=== PATIENT | female | born 1970 | race Caucasian/White ===

== ENCOUNTER 2017-09-01 08:10 | Inpatient (IN) | payer BC ==
[2017-08-28 10:54] LABS: Urine Bacteria NONE SEEN /hpf (None Seen); Urine Blood TRACE /uL (Negative); Urine Mucus FEW (None Seen); Urine WBC <1 /hpf (0 - 5)
[2017-08-28 10:56] LABS: Basophils # (auto) 0.1 uL; Basophils % (auto) 1.1 % (0.0-2.0); Eosinophils # (auto) 0.1 uL; Eosinophils % (auto) 1.8 % (0.0-7.0); Hematocrit 39.4 % (36.0-46.0); Hemoglobin 13.3 g/dL (12.2-16.2); Lymphocytes # (auto) 1.5 uL; Lymphocytes % (auto) 21.7 % (10.0-50.0); Mean Corpuscular Hemoglobin 31.8 pg (28.0-32.0); Mean Corpuscular Hgb Conc. 33.6 g/dL (32.0-36.0); Mean Corpuscular Volume 94.6 fL (80.0-100.0); Monocytes # (auto) 0.8 uL; Monocytes % (auto) 11.7 % (0.0-12.0); Neutrophils # (auto) 4.3 uL; Neutrophils % (auto) 63.7 % (37.0-80.0); Platelet Count (auto) 233 10^3/uL (140-450); Red Blood Cells 4.17 10^6/uL (4.0-5.20); Red Cell Distribution Width 12.4 % (11.8-14.3); White Blood Cell 6.8 10^3/uL (4.4-10.8)
[2017-08-28 11:12] LABS: INR 0.92 (0.9-1.15); Partial Thromboplastin Time 24.2 sec (22.64-33.71)
[2017-08-28 11:19] LABS: Albumin 3.7 g/dL (3.4-5.0); BUN/Creatinine Ratio 17.3; Bilirubin, Total 0.9 mg/dL (0.2-1.0); Calcium 8.5 mg/dL (8.5-10.1); Potassium 3.6 mmol/L (3.5-5.1); Total Protein 7.6 g/dL (6.4-8.2)
[~2017-09-01] VITALS: Ht 162.6 cm; Wt 89.1 kg
[~2017-09-01 08:10] MED LIST: MONT10TA23 PO
[2017-09-01] MEDS ORDERED: ceFAZolin 1GM/50ML 50 ML IV ONE (08:42)
[2017-09-01] MEDS ORDERED: PROPOFOL 10 MG/ML 20 ML IV ONE ×5 (09:14→12:40)
[2017-09-01] MEDS ORDERED: ROPIVACAINE 0.5% (5MG/ML) 20ML AMPULE IJ ONE (09:18)
[2017-09-01] MEDS ORDERED: LIDOCAINE W/ EPINEPHRINE 2% INJ 20ML VIAL ONE (09:18)
[2017-09-01] MEDS ORDERED: STERILE WATER 0 ML ONE (09:20)
[2017-09-01] MEDS ORDERED: ePHEDrine SULFATE 50 MG/ML AMP ONE (09:20)
[2017-09-01] MEDS ORDERED: PHENYLEPHRINE HCL 10 MG/ML VL ONE ×2 (09:29→12:23)
[2017-09-01] MEDS ORDERED: STERILE WATER 10 ML ONE ×2 (09:29→12:23)
[2017-09-01] MEDS ORDERED: MORPHINE SULF(PF) 0.5MG/ML 10ML VIAL ONE (10:28)
[2017-09-01] MEDS ORDERED: MIDAZOLAM HCL 1MG/1ML-2 ML VIAL ONE ×3 (10:28→10:47)
[2017-09-01] MEDS ORDERED: ePHEDrine SULFATE 50 MG/ML AMP IV PRN (11:45)
[2017-09-01] MEDS ORDERED: ONDANSETRON HCL 4 MG/2 ML VIAL IV ONE (11:45)
[2017-09-01] MEDS ORDERED: diphenhdrAMINE HCL 50 MG/1 ML VL IV PRN (11:45)
[2017-09-01] MEDS ORDERED: NALOXONE HCL 0.4 MG/ML VIAL IV PRN ×2 (11:45)
[2017-09-01] MEDS ORDERED: ONDANSETRON HCL 4 MG/2 ML VIAL IV PRN ×2 (11:45→13:45)
[2017-09-01] MEDS ORDERED: HYDROmorphone HCL 2 MG/ML VL IV PRN ×2 (11:45→13:45)
[2017-09-01] MEDS ORDERED: TEMAZEPAM 15 MG CAP PO PRN (13:45)
[2017-09-01] MEDS ORDERED: ACETAMINOPHEN 325 MG TAB PO PRN (13:45)
[2017-09-01 14:30] VITALS: BP 101/56
[2017-09-01] MEDS: LACTATED RINGER'S 1,000 ML IV SCH (15:09)
[2017-09-01] MEDS: SODIUM CHLOR 0.9% PF (SALINE LOCK) 10ML VIAL IV SCH ×2 (15:09→21:46)
[2017-09-01] MEDS: ceFAZolin 1GM/50ML 50 ML IV SCH ×2 (15:30→21:36)
[2017-09-01 17:52] VITALS: BP 101/56
[2017-09-01] MEDS: HYDROcodone-ACET 10/325MG TAB PO PRN ×2 (18:10→20:38)
[2017-09-01] MEDS: DOCUSATE SOD 100 MG CAP PO SCH (21:36)
[2017-09-01] MEDS: oxyCODONE ER 10 MG TAB PO SCH (21:37)
[2017-09-01 22:00] VITALS: BP 143/98
[2017-09-01] MEDS: KETOROLAC TROMETH 30 MG/ML 1ML VIAL IV PRN (22:45)
[2017-09-02] MEDS: traMADol HCL 50 MG TAB PO PRN ×2 (00:07→11:07)
[2017-09-02] MEDS: HYDROcodone-ACET 10/325MG TAB PO PRN ×3 (01:51→17:20)
[2017-09-02] MEDS: ceFAZolin 1GM/50ML 50 ML IV SCH (02:56)
[2017-09-02 05:00] VITALS: BP 143/74
[2017-09-02] MEDS: SODIUM CHLOR 0.9% PF (SALINE LOCK) 10ML VIAL IV SCH ×3 (06:04→21:31)
[2017-09-02] MEDS: KETOROLAC TROMETH 30 MG/ML 1ML VIAL IV PRN ×3 (06:45→19:51)
[2017-09-02 09:00] VITALS: BP 139/77
[2017-09-02] MEDS: DOCUSATE SOD 100 MG CAP PO SCH ×2 (09:37→21:31)
[2017-09-02] MEDS: LACTATED RINGER'S 1,000 ML IV SCH (09:37)
[2017-09-02] MEDS: oxyCODONE ER 10 MG TAB PO SCH ×2 (09:37→21:31)
[2017-09-02] MEDS: ENOXAPARIN SOD 40 MG/0.4 ML SYRINGE SC SCH (09:37)
[2017-09-02] MEDS ORDERED: ALBUTEROL SULF 2.5 MG/0.5ML(0.5%) NEB SOLN NEB PRN (11:15)
[2017-09-02 11:20] LABS: Hematocrit 33.8 % (36.0-46.0); Hemoglobin 11.5 g/dL (12.2-16.2)
[2017-09-02] MEDS ORDERED: HYDROmorphone HCL 2 MG/ML VL IV PRN (11:30)
[2017-09-02 11:44] VITALS: BP 139/77
[2017-09-02 13:00] VITALS: BP 142/77
[2017-09-02 17:30] VITALS: BP 127/79
[2017-09-02] MEDS: MONTELUKAST SODIUM 10 MG TAB PO SCH (21:30)
[2017-09-02 22:08] VITALS: BP 130/72
[2017-09-03] MEDS: KETOROLAC TROMETH 30 MG/ML 1ML VIAL IV PRN ×2 (04:20→11:08)
[2017-09-03 04:47] VITALS: BP 142/78
[2017-09-03] MEDS: SODIUM CHLOR 0.9% PF (SALINE LOCK) 10ML VIAL IV SCH ×4 (05:20→23:52)
[2017-09-03 07:18] LABS: Hematocrit 27.7 % (36.0-46.0); Hemoglobin 9.5 g/dL (12.2-16.2)
[2017-09-03 08:00] VITALS: BP 105/49
[2017-09-03] MEDS: HYDROcodone-ACET 10/325MG TAB PO PRN ×2 (08:36→15:47)
[2017-09-03 09:00] VITALS: BP 105/49
[2017-09-03] MEDS: DOCUSATE SOD 100 MG CAP PO SCH ×2 (10:25→22:11)
[2017-09-03] MEDS: oxyCODONE ER 10 MG TAB PO SCH ×2 (10:25→22:11)
[2017-09-03] MEDS: ENOXAPARIN SOD 40 MG/0.4 ML SYRINGE SC SCH (10:25)
[2017-09-03 13:00] VITALS: BP 118/58
[2017-09-03 16:58] VITALS: BP 105/58
[2017-09-03] MEDS: traMADol HCL 50 MG TAB PO PRN (20:09)
[2017-09-03 21:41] VITALS: BP 114/59
[2017-09-03] MEDS: MONTELUKAST SODIUM 10 MG TAB PO SCH (22:11)
[2017-09-04] MEDS: HYDROcodone-ACET 10/325MG TAB PO PRN ×3 (01:30→18:00)
[2017-09-04 05:18] VITALS: BP 108/59
[2017-09-04] MEDS: traMADol HCL 50 MG TAB PO PRN ×2 (06:52→15:58)
[2017-09-04] MEDS ORDERED: POTASSIUM CHLORIDE 40 MEQ, LIDOCAINE 1% (LOCAL ANESTH.) 4 ML in SODIUM CHL 0.9% 100 ML IV ONE (07:00)
[2017-09-04 07:32] VITALS: BP 123/62
[2017-09-04 09:41] LABS: Hematocrit 26.3 % (36.0-46.0)
[2017-09-04] MEDS: DOCUSATE SOD 100 MG CAP PO SCH ×2 (09:44→22:00)
[2017-09-04] MEDS: ENOXAPARIN SOD 40 MG/0.4 ML SYRINGE SC SCH (09:44)
[2017-09-04] MEDS: oxyCODONE ER 10 MG TAB PO SCH ×2 (09:45→22:13)
[2017-09-04] MEDS ORDERED: LACTULOSE 20Gm/30ML SOLN PO ONE (11:45)
[2017-09-04 11:46] VITALS: BP 122/64
[2017-09-04] MEDS: SODIUM CHLOR 0.9% PF (SALINE LOCK) 10ML VIAL IV SCH ×2 (14:00→22:15)
[2017-09-04 17:02] VITALS: BP 112/69
[2017-09-04] MEDS: MONTELUKAST SODIUM 10 MG TAB PO SCH (22:13)
[2017-09-04 22:18] VITALS: BP 105/60
[2017-09-05] MEDS: traMADol HCL 50 MG TAB PO PRN ×3 (00:54→20:10)
[2017-09-05] MEDS: HYDROcodone-ACET 10/325MG TAB PO PRN (03:10)
[2017-09-05 04:58] VITALS: BP 121/73
[2017-09-05] MEDS: SODIUM CHLOR 0.9% PF (SALINE LOCK) 10ML VIAL IV SCH ×3 (06:02→21:57)
[2017-09-05 07:03] LABS: Hematocrit 25.2 % (36.0-46.0); Hemoglobin 8.7 g/dL (12.2-16.2)
[2017-09-05 09:17] VITALS: BP 135/65
[2017-09-05] MEDS: oxyCODONE ER 10 MG TAB PO SCH ×2 (10:02→21:56)
[2017-09-05] MEDS: DOCUSATE SOD 100 MG CAP PO SCH ×2 (10:02→21:56)
[2017-09-05] MEDS: ENOXAPARIN SOD 40 MG/0.4 ML SYRINGE SC SCH (10:02)
[2017-09-05 10:12] VITALS: BP 135/65
[2017-09-05] MEDS ORDERED: MORPHINE SULFATE 4 MG/ML SYR/VIAL ONE (12:11)
[2017-09-05 12:30] VITALS: BP 112/58
[2017-09-05] MEDS: MORPHINE SULFATE 4 MG/ML SYR/VIAL IV PRN ×2 (17:08→23:56)
[2017-09-05 17:23] VITALS: BP 121/66
[2017-09-05] MEDS: MONTELUKAST SODIUM 10 MG TAB PO SCH (21:56)
[2017-09-05 22:27] VITALS: BP 136/76
[2017-09-06] MEDS: MORPHINE SULFATE 4 MG/ML SYR/VIAL IV PRN ×4 (05:09→23:14)
[2017-09-06 05:10] VITALS: BP 118/67
[2017-09-06] MEDS: traMADol HCL 50 MG TAB PO PRN ×2 (05:47→15:27)
[2017-09-06] MEDS: SODIUM CHLOR 0.9% PF (SALINE LOCK) 10ML VIAL IV SCH ×3 (05:48→21:50)
[2017-09-06 05:56] LABS: Hematocrit 27.1 % (36.0-46.0); Hemoglobin 9.3 g/dL (12.2-16.2); Mean Corpuscular Hemoglobin 32.2 pg (28.0-32.0); Mean Corpuscular Hgb Conc. 34.2 g/dL (32.0-36.0); Mean Corpuscular Volume 94.2 fL (80.0-100.0); Platelet Count (auto) 261 10^3/uL (140-450); Red Blood Cells 2.87 10^6/uL (4.0-5.20); Red Cell Distribution Width 12.2 % (11.8-14.3); White Blood Cell 8.7 10^3/uL (4.4-10.8)
[2017-09-06 06:02] LABS: Band Neutrophils % (manual) 0; Basophils % (manual) 0 (0.0-2.0); Blast Cells 0; Metamyelocytes % 0; Myelocytes % 0; Promyelocytes % 0; Reactive Lymphocytes 0
[2017-09-06 06:49] LABS: Eosinophils % (manual) 4 (0-7); Lymphocytes % (manual) 18 (10.0-50.0); Monocytes % (manual) 13 (0-12)
[2017-09-06] MEDS: HYDROcodone-ACET 10/325MG TAB PO PRN ×2 (07:27→20:00)
[2017-09-06 08:50] VITALS: BP 115/64
[2017-09-06] MEDS: DOCUSATE SOD 100 MG CAP PO SCH ×2 (09:32→21:50)
[2017-09-06] MEDS: ENOXAPARIN SOD 40 MG/0.4 ML SYRINGE SC SCH (09:32)
[2017-09-06] MEDS: oxyCODONE ER 10 MG TAB PO SCH ×2 (09:32→21:50)
[2017-09-06 11:54] VITALS: BP 111/66
[2017-09-06 16:24] VITALS: BP 144/81
[2017-09-06] MEDS: MONTELUKAST SODIUM 10 MG TAB PO SCH (21:50)
[2017-09-06 21:58] VITALS: BP 106/54
[2017-09-07] MEDS: traMADol HCL 50 MG TAB PO PRN ×2 (01:12→12:02)
[2017-09-07] MEDS: MORPHINE SULFATE 4 MG/ML SYR/VIAL IV PRN ×3 (03:08→19:42)
[2017-09-07 04:43] VITALS: BP 123/76
[2017-09-07] MEDS: HYDROcodone-ACET 10/325MG TAB PO PRN ×2 (05:09→15:18)
[2017-09-07] MEDS: SODIUM CHLOR 0.9% PF (SALINE LOCK) 10ML VIAL IV SCH ×3 (05:51→21:50)
[2017-09-07 05:53] LABS: Hemoglobin 9.1 g/dL (12.2-16.2); Mean Corpuscular Hemoglobin 32.5 pg (28.0-32.0); Mean Corpuscular Hgb Conc. 34.8 g/dL (32.0-36.0); Mean Corpuscular Volume 93.5 fL (80.0-100.0); Platelet Count (auto) 306 10^3/uL (140-450); Red Blood Cells 2.79 10^6/uL (4.0-5.20); Red Cell Distribution Width 12.4 % (11.8-14.3); White Blood Cell 8.4 10^3/uL (4.4-10.8)
[2017-09-07 05:58] LABS: Band Neutrophils % (manual) 0; Basophils % (manual) 0 (0.0-2.0); Blast Cells 0; Metamyelocytes % 0; Myelocytes % 0; Promyelocytes % 0; Reactive Lymphocytes 0
[2017-09-07 06:33] LABS: Eosinophils % (manual) 6 (0-7); Lymphocytes % (manual) 20 (10.0-50.0); Monocytes % (manual) 22 (0-12)
[2017-09-07 09:11] VITALS: BP 105/65
[2017-09-07] MEDS: DOCUSATE SOD 100 MG CAP PO SCH ×2 (10:06→21:51)
[2017-09-07] MEDS: ENOXAPARIN SOD 40 MG/0.4 ML SYRINGE SC SCH (10:06)
[2017-09-07] MEDS: oxyCODONE ER 10 MG TAB PO SCH ×2 (10:07→21:51)
[2017-09-07] MEDS ORDERED: DOCUSATE SOD 100 MG CAP PO ONE (11:00)
[2017-09-07] MEDS ORDERED: LACTULOSE 20Gm/30ML SOLN PO ONE (11:00)
[2017-09-07 13:17] VITALS: BP 103/57
[2017-09-07 16:48] VITALS: BP 113/74
[2017-09-07] MEDS: MONTELUKAST SODIUM 10 MG TAB PO SCH (21:51)
[2017-09-07 22:00] VITALS: BP 138/85
[2017-09-08] MEDS: HYDROcodone-ACET 10/325MG TAB PO PRN (00:25)
[2017-09-08] MEDS: MORPHINE SULFATE 4 MG/ML SYR/VIAL IV PRN ×3 (04:23→17:56)
[2017-09-08 05:00] VITALS: BP 121/70
[2017-09-08 05:34] VITALS: BP 137/68
[2017-09-08] MEDS: SODIUM CHLOR 0.9% PF (SALINE LOCK) 10ML VIAL IV SCH ×3 (05:36→22:12)
[2017-09-08 06:26] LABS: Hematocrit 26.5 % (36.0-46.0); Mean Corpuscular Hemoglobin 31.6 pg (28.0-32.0); Mean Corpuscular Hgb Conc. 33.8 g/dL (32.0-36.0); Mean Corpuscular Volume 93.5 fL (80.0-100.0); Platelet Count (auto) 392 10^3/uL (140-450); Red Blood Cells 2.83 10^6/uL (4.0-5.20); Red Cell Distribution Width 12.5 % (11.8-14.3); White Blood Cell 8.9 10^3/uL (4.4-10.8)
[2017-09-08 06:29] LABS: Band Neutrophils % (manual) 0; Basophils % (manual) 0 (0.0-2.0); Blast Cells 0; Metamyelocytes % 0; Myelocytes % 0; Promyelocytes % 0; Reactive Lymphocytes 0
[2017-09-08 08:00] VITALS: BP 143/67
[2017-09-08 10:00] VITALS: BP 143/67
[2017-09-08] MEDS: ENOXAPARIN SOD 40 MG/0.4 ML SYRINGE SC SCH (10:16)
[2017-09-08] MEDS: oxyCODONE ER 10 MG TAB PO SCH ×2 (10:16→22:13)
[2017-09-08] MEDS: DOCUSATE SOD 100 MG CAP PO SCH ×2 (10:17→22:12)
[2017-09-08] MEDS ORDERED: TEMAZEPAM 15 MG CAP PO PRN (11:15)
[2017-09-08 12:36] VITALS: BP 146/86
[2017-09-08 13:48] LABS: Eosinophils % (manual) 4 (0-7); Lymphocytes % (manual) 15 (10.0-50.0); Monocytes % (manual) 19 (0-12)
[2017-09-08 16:41] VITALS: BP 141/79
[2017-09-08] MEDS: MONTELUKAST SODIUM 10 MG TAB PO SCH (22:13)
[2017-09-09 05:00] VITALS: BP 135/72
[2017-09-09] MEDS: HYDROcodone-ACET 10/325MG TAB PO PRN ×3 (05:37→15:31)
[2017-09-09] MEDS: SODIUM CHLOR 0.9% PF (SALINE LOCK) 10ML VIAL IV SCH ×2 (06:12→13:35)
[2017-09-09 08:00] VITALS: BP 141/87
[2017-09-09] MEDS: ENOXAPARIN SOD 40 MG/0.4 ML SYRINGE SC SCH (08:59)
[2017-09-09] MEDS: oxyCODONE ER 10 MG TAB PO SCH (09:00)
[2017-09-09] MEDS: DOCUSATE SOD 100 MG CAP PO SCH (09:00)
[2017-09-09 09:07] VITALS: BP 141/87
[2017-09-09 10:57] VITALS: BP 141/87
[2017-09-09 12:47] VITALS: BP 127/80
[2017-11-08] MEDS ORDERED: ASP81EC PO (17:52)
[2017-11-08] MEDS ORDERED: PERCOT PO (17:52)
== END 2017-09-09 18:45 | disposition home or self-care (01) | DRG 470 ==
LOC: SUR 08:10 → EAST 08:11
PROVIDERS: ADMIT Orthopaedic Surgery; ATTEND Internal Medicine
PROC: 0QSF0ZZ Reposition Left Patella, Open Approach (ICD-10-PCS; 2017-09-01)
PROC: 0SRD0JA Replacement of Left Knee Joint with Synthetic Substitute, Uncemented, Open Approach (ICD-10-PCS; 2017-09-01)
PROC: 0KNR0ZZ Release Left Upper Leg Muscle, Open Approach (ICD-10-PCS; 2017-09-01)
PROC: 0MBP0ZZ Excision of Left Knee Bursa and Ligament, Open Approach (ICD-10-PCS; 2017-09-01)
PROC: 0JBP3ZZ Excision of Left Lower Leg Subcutaneous Tissue and Fascia, Percutaneous Approach (ICD-10-PCS; 2017-09-01)
PROC: 0SRD0J9 Replacement of Left Knee Joint with Synthetic Substitute, Cemented, Open Approach (ICD-10-PCS; principal; 2017-09-01 10:24)
DX: M17.12 Unilateral primary osteoarthritis, left knee (principal); J45.909 Unspecified asthma, uncomplicated; M21.169 Varus deformity, not elsewhere classified, unspecified knee; M21.162 Varus deformity, not elsewhere classified, left knee; M24.562 Contracture, left knee; M62.89 Other specified disorders of muscle; M70.52 Other bursitis of knee, left knee; M22.8X2 Other disorders of patella, left knee; M25.462 Effusion, left knee; Z88.8 Allergy status to other drugs, medicaments and biological substances; Z79.01 Long term (current) use of anticoagulants; Z91.040 Latex allergy status; Y93.89 Activity, other specified
CPT/HCPCS: 36415; 73562; 80053; 81001; 85007; 85014; 85018; 85025; 85027; 85610; 85730; 86850; 86900; 86901; 87081; 97116; 97163; 97530; J0690; J1885; J2001; J2250; J2704

== ENCOUNTER 2017-12-02 14:37 | Observation (INO) | payer BC ==
[~2017-12-02] VITALS: Ht 162.6 cm; Wt 65.8 kg
[~2017-12-02 14:37] MED LIST changes: +ASP81EC PO; +PERCOT PO
[2017-12-02 15:43] LABS: Basophils # (auto) 0.1 uL; Basophils % (auto) 1.1 % (0.0-2.0); Eosinophils # (auto) 0.2 uL; Hematocrit 42.4 % (36.0-46.0); Hemoglobin 14.3 g/dL (12.2-16.2); Lymphocytes # (auto) 2.1 uL; Lymphocytes % (auto) 27.8 % (10.0-50.0); Mean Corpuscular Hemoglobin 30.8 pg (28.0-32.0); Mean Corpuscular Hgb Conc. 33.8 g/dL (32.0-36.0); Mean Corpuscular Volume 91.3 fL (80.0-100.0); Monocytes # (auto) 0.8 uL; Monocytes % (auto) 11.1 % (0.0-12.0); Neutrophils # (auto) 4.3 uL; Nucleated Red Blood Cells % 0.1 %; Platelet Count (auto) 260 10^3/uL (140-450); Red Blood Cells 4.64 10^6/uL (4.0-5.20); Red Cell Distribution Width 13.1 % (11.8-14.3); White Blood Cell 7.4 10^3/uL (4.4-10.8)
[2017-12-02 15:59] LABS: Anion Gap 5 (5-15); Blood Urea Nitrogen 11 mg/dL (7-18); Carbon Dioxide 27 mmol/L (21-32); Chloride 107 mmol/L (98-107); Glucose 118 mg/dL (74-106); Potassium 4.1 mmol/L (3.5-5.1); Sodium 139 mmol/L (136-145)
[2017-12-02 16:00] LABS: Albumin 3.7 g/dL (3.4-5.0); BUN/Creatinine Ratio 17.2; GFR African American 127 mL/min; GFR Non-African American 105 mL/min
[2017-12-02 16:14] LABS: Alanine Aminotransferase 17 U/L (13-56); Alkaline Phosphatase 77 U/L (45-117); Aspartate Aminotransferase 9 U/L (15-37); Bilirubin, Total 0.5 mg/dL (0.2-1.0); Total Protein 8.1 g/dL (6.4-8.2)
[2017-12-02] MEDS ORDERED: IOHEXOL 350 MG/ML 100ML IJ ONE (18:16)
[2017-12-02 18:40] LABS: INR 0.95 (0.9-1.15); Partial Thromboplastin Time 25.2 sec (22.64-33.71); Prothrombin Time 10.3 sec (9.37-12.3)
[2017-12-02 19:34] VITALS: BP 123/62
[2017-12-02] MEDS ORDERED: HYDROcodone-ACET 5/325MG TAB PO ONE (20:00)
== END 2017-12-02 21:29 | disposition home or self-care (01) | DRG 204 ==
LOC: ER 14:37 → OVERFLOW 18:08 → ER 21:29
PROVIDERS: ADMIT Family Medicine; ATTEND Family Medicine
DX: R06.02 Shortness of breath (principal); J45.909 Unspecified asthma, uncomplicated; R79.1 Abnormal coagulation profile; Z90.710 Acquired absence of both cervix and uterus; Z82.49 Family history of ischemic heart disease and other diseases of the circulatory system; Z86.711 Personal history of pulmonary embolism
CPT/HCPCS: 36415; 71045; 71275; 80053; 83880; 84443; 84484; 85025; 85379; 85610; 85730; 93005; 99285; G0378; Q9967